=== PATIENT | male | born 1970 | race African-American/Black ===

== ENCOUNTER 2020-03-26 19:20 | Emergency (ER) | payer OTHER ==
[~2020-03-26] VITALS: Ht 172.7 cm; Wt 92.0 kg
--- NOTE | 2020-03-26 20:06 | ED.ADGEN ---
General Adult EDM: Chief Complaint: ABDOMINAL PAIN HPI: HPI: Patient is a 49 year old male coming in at referral from urgent care for 1 week of vomiting and diarrhea. Patient states he is also been having chills. Has n ot been able to keep anything down including his Metformin. Has a history of type 2 diabetes and denies any other medications. Is not check his blood sugars regularly. Says the emesis is nonbloody nonbilious is just what he is eating. Initially is having diarrhea but is tapered off since he has not been keeping things down including fluids. Patient says he feels dehydrated but is having normal amount of urine. Denies dysuria or hematuria. Says he had an occasional cough but the biggest problems is a vomiting and diarrhea. States he was told at urgent care he had a temperature of 106. Temperature is 100 here. Denies any recent antibiotic use, sick contacts, recent travel, or undercooked foods. He has a history of a umbilical hernia pair with mesh, but no other abdominal surgeries Review of Systems: Review of Systems: All other systems within normal limits except for as noted in the HPI Current Medications: Current Medications Medications (Trade) Dose Ordered Sig/Asha Start Time Stop Time Status Last Admin Dose Admin Acetaminophen (Tylenol) 1,000 mg 1X ONCE 03/26/20 20:45 03/26/20 20:49 DC Info (CONTRAST GIVEN -- Rx MONITORING) 1 each PRN DAILY PRN 03/26/20 21:15 03/28/20 21:14 Iohexol (Omnipaque 300 Mg/ml) 75 ml 1X ONCE 03/26/20 21:30 03/26/20 21:31 DC 03/26/20 21:19 75 ML Multi-Ingredient Mouthwash/Gargle (Gi Cocktail) 20 ml 1X ONCE 03/26/20 23:00 03/26/20 23:01 UNV Ondansetron HCl (Zofran) 4 mg 1X ONCE 03/26/20 20:15 03/26/20 20:49 DC 03/26/20 22:15 4 MG Potassium Chloride (Klor-Con) 40 meq 1X ONCE 03/26/20 22:00 03/26/20 22:01 DC Sodium Chloride 1,000 ml @ 1,000 mls/hr 1X ONCE 03/26/20 20:45 03/26/20 21:44 DC 03/26/20 22:14 1,000 MLS/HR Allergies: Allergies: Allergies Coded Allergies Type Severity Reaction Last Updated Verified No Known Drug Allergies 03/26/20 No Physical Exam: PE: Constitutional: Well developed, well nourished, no acute distress, non-toxic appearance. [] HENT: Normocephalic, atraumatic, bilateral external ears normal, nose normal. Dry mucous membrane [] Eyes: PERRLA, conjunctiva normal, no discharge. [] Neck: No rigidity, supple, no stridor. [] Cardiovascular: Regular rate and rhythm, brisk cap refill [] Lungs & Thorax: Non labored symmetric respirations, no tachypnea or respiratory distress [] Abdomen: Soft, nondistended, generalized tenderness, no umbilical hernia, no guarding or rebound Skin: Warm, dry, no erythema, no rash. [] Back: Unremarkable Extremities: No deformities, range of motion grossly intact, no lower extremity edema [] Neurologic: Alert and oriented X 3, no focal deficits noted. [] Psychologic: Affect normal, judgement normal, mood normal. [] Current Patient Data: Labs: Laboratory Tests Test 03/26/20 19:23 03/26/20 19:35 03/26/20 20:00 Urine Collection Type Unknown Urine Color Andreia Urine Clarity Clear Urine pH 6.0 (<5.0-8.0) Urine Specific [place] >=1.030 (1.000-1.030) Urine Protein 100 mg/dL (NEG-TRACE) Urine Glucose (UA) >=1000 mg/dL (NEG) Urine Ketones (Stick) Trace mg/dL (NEG) Urine Blood Negative (NEG) Urine Nitrite Negative (NEG) Urine Bilirubin Small (NEG) Urine Urobilinogen Dipstick 2.0 mg/dL (0.2 mg/dL) Urine Leukocyte Esterase Negative (NEG) Urine RBC Occ /HPF (0-2) Urine WBC Occ /HPF (0-4) Urine Squamous Epithelial Cells Few /LPF Urine Bacteria Few /HPF (0-FEW) Urine Mucus Slight /LPF White Blood Count 3.1 x10^3/uL (4.0-11.0) L Red Blood Count 4.64 x10^6/uL (4.30-5.70) Hemoglobin 14.1 g/dL (13.0-17.5) Hematocrit 42.1 % (39.0-53.0) Mean Corpuscular Volume 91 fL (79-100) Mean Corpuscular Hemoglobin 30 pg (25-35) Mean Corpuscular Hemoglobin Concent 34 g/dL (31-37) Red Cell Distribution Width 12.9 % (11.5-14.5) Platelet Count 199 x10^3/uL (140-400) Neutrophils (%) (Auto) 49 % (31-73) Lymphocytes (%) (Auto) 36 % (24-48) Monocytes (%) (Auto) 15 % (0-9) H Eosinophils (%) (Auto) 0 % (0-3) Basophils (%) (Auto) 0 % (0-3) Neutrophils # (Auto) 1.5 x10^3/uL (1.8-7.7) L Lymphocytes # (Auto) 1.1 x10^3/uL (1.0-4.8) Monocytes # (Auto) 0.4 x10^3/uL (0.0-1.1) Eosinophils # (Auto) 0.0 x10^3/uL (0.0-0.7) Basophils # (Auto) 0.0 x10^3/uL (0.0-0.2) Sodium Level 135 mmol/L (136-145) L Potassium Level 3.0 mmol/L (3.5-5.1) L Chloride Level 95 mmol/L (98-107) L Carbon Dioxide Level 29 mmol/L (21-32) Anion Gap 11 (6-14) Blood Urea Nitrogen 13 mg/dL (8-26) Creatinine 1.0 mg/dL (0.7-1.3) Estimated GFR (Cockcroft-Gault) 96.1 BUN/Creatinine Ratio 13 (6-20) Glucose Level 206 mg/dL (70-99) H Lactic Acid Level 1.4 mmol/L (0.4-2.0) Calcium Level 9.0 mg/dL (8.5-10.1) Phosphorus Level 2.2 mg/dL (2.6-4.7) L Magnesium Level 2.1 mg/dL (1.8-2.4) Total Bilirubin 0.7 mg/dL (0.2-1.0) Aspartate Amino Transferase (AST) 52 U/L (15-37) H Alanine Aminotransferase (ALT) 50 U/L (16-63) Alkaline Phosphatase 52 U/L (46-116) Troponin I Quantitative < 0.017 ng/mL (0.000-0.055) WZ-Cyz-L-Type Natriuretic Peptide < 5 pg/mL (0-124) Total Protein 8.3 g/dL (6.4-8.2) H Albumin 3.5 g/dL (3.4-5.0) Albumin/Globulin Ratio 0.7 (1.0-1.7) L Lipase 106 U/L (73-393) Influenza Type A Antigen Negative (NEGATIVE) Influenza Type B Antigen Negative (NEGATIVE) Laboratory Tests 03/26/20 19:35 Laboratory Tests 03/26/20 19:35 Vital Signs: Vital Signs Date Time Temp Pulse Resp B/P (MAP) Pulse Ox O2 Delivery O2 Flow Rate FiO2 03/26/20 19:35 100.0 84 25 140/85 (103) 98 Room Air 100.0 EKG: EKG: Sinus rhythm with a right bundle branch block, right axis deviation, no ST elevation depression, wide QRS, no ectopy [] Heart Score: Risk Factors: Risk Factors: DM, Current or recent (<one month) smoker, HTN, HLP, family history of CAD, obesity. Risk Scores: Score 0 - 3: 2.5% MACE over next 6 weeks - Discharge Home Score 4 - 6: 20.3% MACE over next 6 weeks - Admit for Clinical Observation Score 7 - 10: 72.7% MACE over next 6 weeks - Early Invasive Strategies Radiology/Procedures: Radiology/Procedures: INDICATION: Reason: vomiting and generalized abdominal pain / Spl. Instructions: OMNI 300 INJ 75 MLS / History: . COMPARISON: None. TECHNIQUE: Axial CT images obtained through the abdomen and pelvis with contrast. One or more of the following individualized dose reduction techniques were uti lized for this examination: 1. Automated exposure control; 2. Adjustment of the mA and/or kV according to patient size; 3. Use of iterative reconstruction technique. FINDINGS: Bronchiectasis at the lung bases with patchy opacities at left greater than right lung base. Abdominal aorta is not aneurysmal. Fat-containing inguinal hernias. Liver is low density which can be seen with fatty infiltration. No intrahepatic bile duct dilation. No peripancreatic fluid collection. Spleen is unremarkable. Left renal cystic lesion measuring 23 mm. No hydronephrosis. The urinary bladder wall is mildly prominent. Fat-containing umbilical hernia. No periappendiceal inflammatory changes. Appendix upper limits of normal in size proximally with distal tapering. Degenerative changes of the spine with mild scoliotic curvature. IMPRESSION: * Patchy opacities at the lung bases which could be infectious or inflammatory in nature but follow-up could be obtained to ensure that this decreases to exclude neoplastic causes. There is also some bronchiectasis seen at the lung bases. * Liver is low density which can be seen with fatty infiltration. * No evidence of appendicitis. * Left renal cystic lesion. [] Course & Med Decision Making: Course & Med Decision Making Pertinent Labs and Imaging studies reviewed. (See chart for details) [] Dragon Disclaimer: Dragon Disclaimer: This electronic medical record was generated, in whole or in part, using a voice recognition dictation system. Departure Departure Impression: Primary Impression: Nausea & vomiting Additional Impression: Atypical pneumonia Disposition: 01 DC HOME SELF CARE/HOMELESS Condition: STABLE Additional Instructions: You have been tested for or diagnosed with COVID-19. It is an infection caused by a new type of coronavirus. COVID-19 will cause cold-like or mild flu symptoms in most. It can cause more severe symptoms like problems breathing in some. There is no treatment for COVID-19. The body will clear the infection over time. Self-care will help to ease discomfort. Steps to Take: Self-Care Rest as needed. Healthy habits may help you feel better. Steps include: Choose healthy foods including fruits and vegetables. Drink water throughout the day. Get plenty of sleep each night. If you smoke, try to quit. It may ease breathing. Avoid alcohol. Keep Others Healthy The virus can spread to others. Droplets are released every time you sneeze or cough. The droplets can get into the mouth, nose, or eyes of people near you and lead to infection. To lower the chances of spreading COVID-19 to others: Stay at home until your doctor has said it is safe to leave. If you tested positive this will mean staying isolated until both of the following are true: At least 7 days have passed since the start of illness. You are free of fever for at least 72 hours without the use of medicine. During this time: - Avoid public areas, events, or transportation. Do not return to work or asha ool until your doctor has said it is safe to do so. - Call ahead if you need to go to a medical center. Let them know you may have COVID-19. It will help them guide you where to go. They may also ask you to wear a facemask when you come to the office. - If you call for emergency medical services, let them know you may have COVID- 19. While at home: - Try to avoid close contact with others. Stay about 6 feet away. - If possible, spend most of your time in a separate room from others. - Use a face mask if you will be in close contact with others such as sharing a room or vehicle. - Have someone wipe down common surfaces in the home. Use household subway car repairer every day on areas like doorknobs, counters, or sinks. - Cough or sneeze into a tissue. Throw the tissue away right after use. If a tissue is not available, cough or sneeze into your elbow. - Wash your hands often. Wash them after sneezing or coughing. Use soap and water and wash for at least 20 seconds. Alcohol based hand janitor cleaner can be used if soap and water is not available. - Do not prepare food for others. Avoid sharing personal items like forks, spoons, or toothbrushes. - Avoid close contact with pets while you are sick. There is no evidence of the virus passing to pets. This is a safety step until more is known about this virus. Isolation can be frustrating. Social interaction can help. Keep in touch with friends and family through phone and tech options. You can still interact with others in your home, just keep a safe distance of about 6 feet. Follow-up: Your doctors office will check in with you to see if there are any changes in your health. You may be asked to keep track of symptoms to share with them. They will also let you know when you are clear to be in public again. Problems to Look Out For: Contact your doctor if your recovery is not going as you expect. Get emergency care if you have problems such as: - Trouble breathing - Nonstop chest pain or pressure - Changes in awareness, confusion, or problems waking - Lips or face have bluish color - Worsening of symptoms If you think you have an emergency, call for emergency medical services right away. As taken from [facility] [place] [facility] Ondansetron (ONDANSETRON ODT) 4 Mg Tab.rapdis 1 TAB PO PRN Q6-8HRS PRN for NAUSEA for 3 Days, #10 TAB Prov: MARILEE MARTINS MD 03/26/20 Doxycycline Hyclate (DOXYCYCLINE HYCLATE) 100 Mg Capsule 1 CAP PO BID for antibiotic for 7 Days, #14 CAP Prov: MARILEE MARTINS MD 03/26/20 Problem Qualifiers MARILEE MARTINS MD Mar 26, 2020 20:06
[2020-03-26] MEDS ORDERED: IV NORMAL SALINE 1000ML BAG 1,000 ML IV ONE ×2 (20:15→20:45)
[2020-03-26] MEDS ORDERED: ONDANSETRON PF 4 MG/2 ML VIAL. IVP ONE (20:15)
[2020-03-26 20:24] LABS: BASO % 0 % (0-3); EOS % 0 % (0-3); HEMATOCRIT 42.1 % (39.0-53.0); HEMOGLOBIN 14.1 g/dL (13.0-17.5); LYMPH # 1.1 x10^3/uL (1.0-4.8); LYMPH % 36 % (24-48); MEAN CORPUSCULAR HEMOGLOBIN 30 pg (25-35); MEAN CORPUSCULAR HGB CONC 34 g/dL (31-37); MEAN CORPUSCULAR VOLUME 91 fL (79-100); MONO # 0.4 x10^3/uL (0.0-1.1); MONO % 15 % (0-9); NEUT # 1.5 x10^3/uL (1.8-7.7); NEUT % 49 % (31-73); PLATELET COUNT 199 x10^3/uL (140-400); RED BLOOD COUNT 4.64 x10^6/uL (4.30-5.70); RED CELL DISTRIBUTION WIDTH 12.9 % (11.5-14.5); WHITE BLOOD COUNT 3.1 x10^3/uL (4.0-11.0)
[2020-03-26 20:24] LABS: BILIRUBIN,URINE SMALL (NEG); CLARITY,URINE CLEAR; COLOR,URINE AMBER; NITRITE,URINE NEGATIVE (NEG); PROTEIN,URINE 100 mg/dL (NEG-TRACE)
[2020-03-26 20:31] LABS: RBC,URINE OCC /HPF (0-2)
[2020-03-26 20:32] LABS: BACTERIA,URINE FEW /HPF (0-FEW); WBC,URINE OCC /HPF (0-4)
[2020-03-26 20:38] LABS: ALBUMIN 3.5 g/dL (3.4-5.0); ALBUMIN/GLOBULIN RATIO 0.7 (1.0-1.7); GFR 96.1; MAGNESIUM 2.1 mg/dL (1.8-2.4); PHOSPHORUS 2.2 mg/dL (2.6-4.7); TOTAL BILIRUBIN 0.7 mg/dL (0.2-1.0); TOTAL PROTEIN 8.3 g/dL (6.4-8.2)
[2020-03-26] MEDS ORDERED: ACETAMINOPHEN 500 MG TABLET PO ONE (20:45)
[2020-03-26] MEDS ORDERED: CONTRAST GIVEN. MC PRN (21:15)
[2020-03-26 21:25] LABS: INFLUENZA A PATIENT NEGATIVE (NEGATIVE); INFLUENZA B PATIENT NEGATIVE (NEGATIVE)
[2020-03-26] MEDS ORDERED: IOHEXOL 300 MG/ML 100ML VIAL. IV ONE (21:30)
--- NOTE | 2020-03-26 21:38 | RAD ---
INDICATION: Reason: vomiting and generalized abdominal pain / Spl. Instructions: OMNI 300 INJ 75 MLS / History: . COMPARISON: None. TECHNIQUE: Axial CT images obtained through the abdomen and pelvis with contrast. One or more of the following individualized dose reduction techniques were utilized for this examinat ion: 1. Automated exposure control; 2. Adjustment of the mA and/or kV according to patient size; 3 . Use of iterative reconstruction technique. FINDINGS: Bronchiectasis at the lung bases with patchy opacities at left greater than right lung base. Abdominal aorta is not aneurysmal. Fat-containing inguinal hernias. Liver is low density which can be seen with fatty infiltration. No intrahepatic bile duct dilation. No peripancreatic fluid collection. Spleen is unremarkable. Left renal cystic lesion measuring 23 mm. No hydronephrosis. The urinary bladder wall is mildly prominent. Fat-containing umbilical hernia. No periappendiceal inf lammatory changes. Appendix upper limits of normal in size proximally with distal tapering. Degenerative changes of the spine with mild scoliotic curvature. IMPRESSION: * Patchy opacities at the lung bases which could be infectious or inflammatory in nature but follow- up could be obtained to ensure that this decreases to exclude neoplastic causes. There is also some b ronchiectasis seen at the lung bases. * Liver is low density which can be seen with fatty infiltration. * No evidence of appendicitis. * Left renal cystic lesion. Electronically signed by: Vini Solomon MD (03/26/2020 9:35 PM) [id number]
[2020-03-26] MEDS ORDERED: POTASSIUM CHLORIDE 20 MEQ TABLET.ER. PO ONE (22:00)
[2020-03-26] MEDS ORDERED: ONDA4TAB12 PO (23:06)
[2020-03-26] MEDS ORDERED: DOXY100C2 PO (23:06)
[2020-03-26 23:07] VITALS: BP 160/83
[2020-03-26] MEDS ORDERED: LIDO:MAALOX 1:1 20 ML SINGLE DOSE. SWSW ONE (23:30)
--- NOTE | 2020-03-28 08:56 | NUR ---
IP: Informed pt of positive COVID test and the need to quarantine for 10 days from the onset of symptoms. Pt verbalized understanding.
== END 2020-03-26 23:20 | disposition home or self-care (01) ==
LOC: ER 19:20
DX: U07.1 COVID-19 (principal); J18.9 Pneumonia, unspecified organism; R11.2 Nausea with vomiting, unspecified; R19.7 Diarrhea, unspecified; E86.0 Dehydration; E11.9 Type 2 diabetes mellitus without complications
CPT/HCPCS: 36415; 74177; 80053; 81001; 83605; 83690; 83735; 83880; 84100; 84484; 85025; 87804; 96361; 96374; 99285; J2405; J7030; Q9967; U0003; C9803